=== PATIENT | female | born 2000 | race Caucasian/White ===

== ENCOUNTER 2019-04-04 23:44 | Emergency (ER) | payer OTHER ==
[~2019-04-04] VITALS: Ht 149.9 cm; Wt 50.3 kg
== END 2019-04-05 03:58 ==
LOC: ER 23:44
DX: O26.852 Spotting complicating pregnancy, second trimester (principal); O46.8X2 Other antepartum hemorrhage, second trimester; Z3A.18 18 weeks gestation of pregnancy